=== PATIENT | female | born 1980 | race Hispanic/Latino ===

== ENCOUNTER 2017-05-05 09:04 | Outpatient (CLI) | payer OTHER ==
--- NOTE | 2017-05-05 12:14 | CT ---
PRE AND POST CONTRAST ENHANCED CT OF THE SOFT TISSUE NECK: History: Abnormal ultrasound. Technique: Pre and post contrast enhanced CT images of the soft tissue neck is obtained. FINDINGS: Images demonstrate a cystic lesion, diameter measuring 1.3 x 1.2 x 2.6 cm in the midline medial to th e anterior strap muscles and just inferior to the hyoid bone. This lesion is most compatible with a t hyroglossal duct cyst. No other significant masses or lesions seen. IMPRESSION: Midline cystic lesion most compatible with a thyroglossal duct cyst. POS: DANIELLE
[2017-05-05] MEDS ORDERED: Iopamidol 250 51% 100 ML VIAL FS ONE (14:01)
== END 2017-05-05 09:05 | disposition home or self-care (01) ==
LOC: CT 09:04
PROVIDERS: ATTEND Family Medicine
DX: R22.1 Localized swelling, mass and lump, neck (principal); M54.5 Low back pain; E07.89 Other specified disorders of thyroid
CPT/HCPCS: 70492

== ENCOUNTER 2017-11-11 08:06 | Outpatient (CLI) | payer OTHER ==
--- NOTE | 2017-11-11 10:11 | ULT ---
NECK ULTRASOUND: HISTORY: Followup thyroglossal duct cyst. COMPARISON: A 05/05/17 CT examination. FINDINGS: [place]-shaped cystic lesion measuring 9 x 20 mm in size is seen within the midline. This appears inga rly similar to the previous CT study. IMPRESSION: Midline cystic lesion stable in size, most likely a thyroglossal duct cyst. POS: CHANTALE
== END 2017-11-11 08:07 | disposition home or self-care (01) ==
LOC: ULT 08:06
PROVIDERS: ATTEND Family Medicine
DX: R22.1 Localized swelling, mass and lump, neck (principal); M54.5 Low back pain; H52.10 Myopia, unspecified eye; R42 Dizziness and giddiness; R51 Headache; K63.9 Disease of intestine, unspecified; R93.8 Abnormal findings on diagnostic imaging of other specified body structures
CPT/HCPCS: 76536

== ENCOUNTER 2020-04-09 20:39 | Emergency (ER) | payer OTHER ==
--- NOTE | 2020-04-09 22:02 | RAD ---
Chest one view HISTORY: Dyspnea. COVID positive. FINDINGS: No comparison. Cardiac silhouette is magnified by projection. Pulmonary vasculature is unre markable. Ill-defined patchy areas of parenchymal infiltrate are more pronounced within the right lung, especia lly at the medial aspect of the right upper lobe. No evidence of pneumothorax. IMPRESSION : Multifocal pneumonitis, consistent with COVID infection.
[2020-04-09 22:59] LABS: #Eosinphils 0.1 thou/uL (0.0-0.7); #Lymphocytes 1.4 thou/uL (1.20-3.40); #Monocytes 0.6 thou/uL (0.11-0.59); #Neutrophils 5.9 thou/uL (1.40-6.50); %Basophils 0.5 % (0.0-1.0); %Eosinophils 0.6 % (0.0-10.0); %Lymphocytes 17.8 % (21.0-51.0); %Monocytes 7.7 % (0.0-10.0); %Neutrophils 73.3 % (42.0-75.0); Hemoglobin 12.3 g/dL (12.0-16.0); Mean Corpuscular HGB CONC 33.2 g/dL (32.0-36.0); Mean Corpuscular Hemoglobin 27.3 pg (27.0-31.0); Mean Corpuscular Volume 82.2 fL (78.0-98.0); Mean Platelet Volume 7.1 fL (7.4-10.4); Platelet Count 352 thou/uL (130-400); RBC Distribution Width 11.4 % (11.5-14.5); Red Blood Cell (RBC) Count 4.51 mill/uL (4.20-5.40)
[2020-04-09 23:14] LABS: BHCG - Serum Negative (NEGATIVE); Pregs Control Background? CLEAR/WHITE (CLR/WHITE); Pregs Control Bar Appear? YES (CONTROL BAR)
[2020-04-09 23:20] LABS: ALT (SGPT) 20 U/L (8-55); AST (SGOT) 15 U/L (5-34); Alkaline Phosphatase 72 U/L (40-110); Anion Gap 16 mmol/L (10-20); BUN (Urea Nitrogen) 11 mg/dL (7.0-18.7); Bilirubin, Total 0.5 mg/dL (0.2-1.2); Calc. Creatinine Clearance 0 mL/min (70-130); Calcium 8.7 mg/dL (7.8-10.44); Carbon Dioxide 19 mmol/L (22-29); Chloride 108 mmol/L (98-107); Estimated GFR-MDRD 90; Globulin 2.9 g/dL (2.4-3.5); Glucose 79 mg/dL (70-105); Potassium 3.6 mmol/L (3.5-5.1); Protein, Total 6.9 g/dL (6.0-8.3); Sodium 139 mmol/L (136-145)
== END 2020-04-09 23:47 ==
LOC: ERS 20:39
DX: U07.1 COVID-19 (principal); J12.89 Other viral pneumonia; D64.9 Anemia, unspecified
CPT/HCPCS: 36415; 71045; 80053; 84484; 84703; 85025